=== PATIENT | male | born 1980 | race Caucasian/White ===

== ENCOUNTER 2024-05-24 11:01 | Emergency (ER) | payer BC, OTHER ==
[2024-05-24] MEDS ORDERED: Fluorescein Opthalmic Strip ONE (12:05)
[2024-05-24] MEDS ORDERED: Proparacaine 0.5% Opth 15 ML BOT ONE (12:05)
== END 2024-05-24 12:37 | disposition home or self-care (01) ==
LOC: CSHERS 11:01
DX: S05.01XA Injury of conjunctiva and corneal abrasion without foreign body, right eye, initial encounter (principal); F17.210 Nicotine dependence, cigarettes, uncomplicated; E11.9 Type 2 diabetes mellitus without complications; V89.2XXA Person injured in unspecified motor-vehicle accident, traffic, initial encounter
CPT/HCPCS: 99283